=== PATIENT | male | born 1970 | race Caucasian/White ===

== ENCOUNTER 2020-12-23 21:42 | Emergency (ER) | payer BC, OTHER ==
[~2020-12-23] VITALS: Ht 185.4 cm; Wt 200.0 kg
[2020-12-23 22:42] VITALS: BP 132/58
--- NOTE | 2020-12-23 23:04 | PHYS DOC ---
Past Medical History Past Medical History: High Cholesterol, Hypertension, Pneumonia Additional Past Medical Histor: COVID 06/2020, BILATERAL BROKEN LEGS Past Surgical History: No Surgical History Smoking Status: Never Smoker Alcohol Use: Occasionally General Adult EDM: Chief Complaint: MECHANICAL FALL HPI: HPI: Patient is a 50 year old male who presents with at [facility] when he slipped and fell on a wet floor falling on his right face, right ribs and right knee and injuring the left forearm. He rates his pain a throbbing 5 out of 10. He denies loss of consciousness. He denies any kind of blood thinners. Patient denies chest pain, shortness of air, abdominal pain, nausea, vomiting, dizziness, vision change, focal weakness, Review of Systems: Review of Systems: Constitutional: Denies fever or chills. [] Eyes: Denies change in visual acuity. [] HENT: Denies nasal congestion or sore throat. [] Respiratory: Denies cough or shortness of breath. [] Cardiovascular: Denies chest pain or edema. [] GI: Denies abdominal pain, nausea, vomiting, bloody stools or diarrhea. [] : Denies dysuria. [] Musculoskeletal: + bilateral lower back pain or + right knee joint pain. + Right ribs . + Left forearm . + Right face [] Integument: Denies rash. [] Neurologic: Denies headache, focal weakness or sensory changes. [] Endocrine: Denies polyuria or polydipsia. [] Lymphatic: Denies swollen glands. [] Psychiatric: Denies depression or anxiety. [] Heart Score: C/O Chest Pain: No Risk Factors: Risk Factors: DM, Current or recent (<one month) smoker, HTN, HLP, family history of CAD, obesity. Risk Scores: Score 0 - 3: 2.5% MACE over next 6 weeks - Discharge Home Score 4 - 6: 20.3% MACE over next 6 weeks - Admit for Clinical Observation Score 7 - 10: 72.7% MACE over next 6 weeks - Early Invasive Strategies Allergies: Allergies: Allergies Coded Allergies Type Severity Reaction Last Updated Verified No Known Drug Allergies 12/23/20 No Physical Exam: PE: Constitutional: Well developed, well nourished, no acute distress, non-toxic appearance. [] HENT: Normocephalic, atraumatic, bilateral external ears normal, oropharynx moist, no oral exudates, nose normal. Redness to the right cheekbone side of the face [] Eyes: PERRLA, EOMI, conjunctiva normal, no discharge. [] Neck: Normal range of motion, no tenderness, supple, no stridor. [] Cardiovascular:Heart rate regular rhythm, no murmur [] Lungs & Thorax: Bilateral breath sounds clear to auscultation [] Abdomen: Bowel sounds normal, soft, no tenderness, no masses, no pulsatile masses. [] Skin: Warm, dry, no erythema, no rash. Redness to right side of the face [] Back: Bilateral lower back tenderness, no CVA tenderness. [] Extremities: Right dorsal patella tenderness, no cyanosis, no clubbing, ROM intact, 1+ edema. [] Neurologic: Alert and oriented X 3, normal motor function, normal sensory function, no focal deficits noted. [] Psychologic: Affect normal, judgement normal, mood normal. [] Current Patient Data: Vital Signs: Vital Signs Date Time Temp Pulse Resp B/P (MAP) Pulse Ox O2 Delivery O2 Flow Rate FiO2 12/23/20 22:39 98.2 93 12 131/59 (83) 95 Room Air 98.2 EKG: EKG: [] Radiology/Procedures: Radiology/Procedures: [] Impression: [facility] [address] [place], [place] [id number] IMAGING REPORT Signed PATIENT: CONSTANZA TOSCANO ACCOUNT: [id number] : 1970 LOCATION: ER AGE: 50 SEX: M EXAM STATUS: REG ER ORD. PHYSICIAN: MALIA RAMÍREZ APRN REASON: fall, head injury PROCEDURE: CT HEAD AND MAXILLOFACIAL WO EXAM: CT HEAD WITHOUT IV CONTRAST CLINICAL HISTORY: Reason: fall, head injury / Spl. Instructions: / History: COMPARISON: None. TECHNIQUE: Routine CT of the head without contrast. Soft tissues and bone windows were reviewed. PQRS compliance statement - One or more of the following individualized dose reduction techniques were utilized for this study: 1. Automated exposure control 2. Adjustment of the mA and/or kV according to patient size 3. Use of iterative reconstruction technique FINDINGS: There is no evidence of hemorrhage, mass or extra-axial fluid collection. Cunningham-white differentiation is maintained with no evidence of edema. There is no mass effect or shift of the intracranial structures. The ventricles, basilar cisterns and cortical sulci are normal in size and configuration for the patients stated age. The cerebellum and brainstem are unremarkable. The calvarium demonstrates no evidence of fracture or focal lesion. There is normal aeration of the visualized paranasal sinuses and mastoid air cells. The visualized portions of the orbits are normal. IMPRESSION: No evidence for acute intracranial process. EXAM: CT facial bones without contrast CLINICAL HISTORY: Reason: fall, head injury / Spl. Instructions: / History: COMPARISON: None available. TECHNIQUE: Helical CT of the face/paranasal sinuses was acquired and axial, co sola and sagittal reformatted images were generated. ---PQRS compliance statement - One or more of the following individualized dose reduction techniques were utilized for this study: 1. Automated exposure control 2. Adjustment of the mA and/or kV according to patient size 3. Use of iterative reconstruction technique--- FINDINGS: No definite fracture is noted of the facial bones. Nodular thickening of the maxillary sinuses. No air-fluid levels. The mastoids are unremarkable. The globes, extraocular muscles, optic nerves and retrobulbar fat are normal. Multifocal dental caries are seen. Otherwise, visualized upper aerodigestive tract is normal. Mandible and bilateral temporomandibular joints are normal. IMPRESSION: 1. No evidence for acute facial for fracture or dislocation. 2. Maxillary sinus disease. 3. Multifocal dental disease. Electronically signed by: Bill Kaye MD (12/23/2020 11:25 PM) [facility] DICTATED and SIGNED BY: BILL KAYE MD DATE: 12/23/20 [id number] [facility] [address] [place] [address] IMAGING REPORT Signed PATIENT: CONSTANZA TOSCANO ACCOUNT: [id number] : 1970 LOCATION: ER AGE: 50 SEX: M EXAM STATUS: REG ER ORD. PHYSICIAN: MALIA RAMÍREZ APRN REASON: pain after fall PROCEDURE: RIBS RIGHT AND PA CHEST Exam:Right ribs with PA chest Date: 12/23/2020 11:11 PM Comparison: No prior Indication: Reason: pain after fall / Spl. Instructions: / History: Findings/ Impression: The heart is not enlarged. Mediastinal and hilar contours are normal. No focal parenchymal airspace opacity. No pleural effusion or pneumothorax. AP, Oblique and Spot images of the right ribs are negative for acute displaced rib fracture. Negative focal pleural elevation. Symmetrical intercostal spacing. It is of note that an acute non-displaced rib fracture can be in-apparent on initial post-trauma imaging. Electronically signed by: Bill Kaye MD (12/24/2020 12:14 AM) [facility] DICTATED and SIGNED BY: BILL KAYE MD DATE: 12/24/20 [id number] [id number] IMAGING REPORT Signed PATIENT: CONSTANZA TOSCANO ACCOUNT: [id number] : 1970 LOCATION: ER AGE: 50 SEX: M EXAM STATUS: REG ER ORD. PHYSICIAN: MALIA RAMÍREZ APRN REASON: pain after fall PROCEDURE: KNEE RIGHT 4V EXAM: AP, oblique, tangential patellar and lateral views of the right knee DATE: 12/23/2020 11:11 PM CLINICAL INDICATION: Reason: pain after fall / Spl. Instructions: / History: COMPARISON: None. FINDINGS: Negative for acute or subacute fracture. Regional joint spaces are preserved. Soft tissue swelling about the right lower leg.. Negative retained radiopaque foreign body. There is no large joint effusion. Lateral patellar tracking IMPRESSION: 1. No acute fracture or dislocation. 2. Lateral patellar tracking. Electronically signed by: Bill Kaye MD (12/24/2020 12:15 AM) [facility] DICTATED and SIGNED BY: BILL KAYE MD DATE: 12/24/20 [id number] [id number] [place] [address] IMAGING REPORT Signed PATIENT: CONSTANZA TOSCANO ACCOUNT: [id number] : 1970 LOCATION: ER AGE: 50 SEX: M EXAM STATUS: REG ER ORD. PHYSICIAN: MALIA RAMÍREZ APRN REASON: pain after fall PROCEDURE: FOREARM LEFT EXAM: AP and lateral views left forearm DATE: 12/23/2020 11:11 PM INDICATION: Reason: pain after fall / Spl. Instructions: / History: . COMPARISON: No Prior FINDINGS/ IMPRESSION: No evidence of acute fracture or dislocation. Joint spaces are preserved without significant degenerative/proliferative change. Soft tissue swelling at the dorsal aspect of the left forearm. Electronically signed by: Bill Kaye MD (12/24/2020 12:16 AM) [facility] DI[facility]ATED and SIGNED BY: BILL KAYE MD DATE: 12/24/20 [id number] Course & Med Decision Making: Course & Med Decision Making Pertinent Labs and Imaging studies reviewed. (See chart for details) See HPI. Alert and oriented x3. Ambulatory with a steady gait. Skin pink warm and dry. Some tenderness to the right face with some redness but there is no swelling or deformity or bruising. Left posterior forearm looks 2+ swollen but there is no deformity, bruising or swelling. Right anterior patella with slight tenderness with palpation but there is no dislocation, deformity, bruising maybe 1+ swelling. Full range of motion of all joints. Ambulatory with a steady gait. No rib tenderness with palpation there is no subcutaneous emphysema or crepitus. Lungs are clear to all station all lobes. Speaks in full complete sentences. Bilateral low back slight tenderness but he states that it feels more like a pulled muscle. No numbness or tingling. No focal weakness. No laceration, abrasions. [] Dragon Disclaimer: Brit Disclaimer: This electronic medical record was generated, in whole or in part, using a voice recognition dictation system. Departure Departure Impression: Primary Impression: Facial pain Additional Impressions: Left arm pain Knee pain, right Qualified Codes: M25.561 - Pain in right knee Rib pain on right side Disposition: HOME / SELF CARE / HOMELESS Condition: STABLE Patient Instructions: Facial or Scalp Contusion, Fall Prevention and Home Safety, Incentive Spirometer, Knee Pain, Rib Contusion Additional Instructions: Follow up with your primary care provider soon as possible. Use ice or heat to help with your pain. Drink plenty of fluids. Remember pain medication and or muscle relaxer will make you very sleepy. Scripts Cyclobenzaprine Hcl (CYCLOBENZAPRINE HCL) 10 Mg Tablet 1 TAB PO TID, #15 TAB Prov: MALIA RAMÍREZ APRN 12/24/20 Ibuprofen (IBUPROFEN) 600 Mg Tablet 600 MG PO PRN Q6HRS PRN for INFLAMMATION, #20 TAB Prov: MALIA RAMÍREZ APRN 12/24/20 MALIA RAMÍREZ APRN Dec 23, 2020 23:04
--- NOTE | 2020-12-23 23:27 | RAD ---
EXAM: CT HEAD WITHOUT IV CONTRAST CLINICAL HISTORY: Reason: fall, head injury / Spl. Instructions: / History: COMPARISON: None. TECHNIQUE: Routine CT of the head without contrast. Soft tissues and bone windows were reviewed. PQRS compliance statement - One or more of the following individualized dose reduction techniques wer e utilized for this study: 1. Automated exposure control 2. Adjustment of the mA and/or kV according to patient size 3. Use of iterative reconstruction technique FINDINGS: There is no evidence of hemorrhage, mass or extra-axial fluid collection. Cunningham-white differentiation is maintained with no evidence of edema. There is no mass effect or shift of the intracranial structures. The ventricles, basilar cisterns and cortical sulci are normal in size and configuration for the jamie ents stated age. The cerebellum and brainstem are unremarkable. The calvarium demonstrates no evidence of fracture or focal lesion. There is normal aeration of the visualized paranasal sinuses and mastoid air cells. The visualized portions of the orbits are normal. IMPRESSION: No evidence for acute intracranial process. EXAM: CT facial bones without contrast CLINICAL HISTORY: Reason: fall, head injury / Spl. Instructions: / History: COMPARISON: None available. TECHNIQUE: Helical CT of the face/paranasal sinuses was acquired and axial, coronal and sagittal refo rmatted images were generated. ---PQRS compliance statement - One or more of the following individualized dose reduction techniques were utilized for this study: 1. Automated exposure control 2. Adjustment of the mA and/or kV according to patient size 3. Use of iterative reconstruction technique--- FINDINGS: No definite fracture is noted of the facial bones. Nodular thickening of the maxillary sinuses. No air-fluid levels. The mastoids are unremarkable. The globes, extraocular muscles, optic nerves and retrobulbar fat are normal. Multifocal dental caries are seen. Otherwise, visualized upper aerodigestive tract is normal. Mandible and bilateral temporomandibular joints are normal. IMPRESSION: 1. No evidence for acute facial for fracture or dislocation. 2. Maxillary sinus disease. 3. Multifocal dental disease. Electronically signed by: Bill Gutierrez MD (12/23/2020 11:25 PM) [facility]
--- NOTE | 2020-12-23 23:42 | RAD ---
CT LUMBAR SPINE WO History:Reason: pain after fall, low back / Spl. Instructions: / History: Technique: Noncontrast CT was performed of the lumbar spine. Multiplanar reconstructions were perform ed. Exposure: One or more of the following individualized dose reduction techniques were utilized for thi s examination: 1. Automated exposure control 2. Adjustment of the mA and/or kV according to patient size 3. Use of iterative reconstruction technique. Comparison: None Findings: Subtle linear lucency within left L3 transverse process. Normal vertebral body height and alignment. Unfused posterior elements L5. T12-L1: No canal or neuroforaminal narrowing. L1-L2: No canal or neuroforaminal narrowing. L2-L3: Small disc bulge. No canal or neuroforaminal narrowing. L3-L4: Broad-based disc bulge. Mild facet arthropathy. No canal narrowing. No neuroforaminal narrowi ng. L4-L5: Broad-based disc bulge. Moderate facet arthropathy. Subarticular recess narrowing. No definit e canal narrowing. Mild bilateral neuroforaminal narrowing. L5-S1: Disc bulge. No canal narrowing. Moderate facet arthropathy. Mild bilateral neuroforaminal chris rowing. Impression: 1. Slight irregularity of left L3 transverse process, may represent nondisplaced fracture or artifac t. Recommend correlation with point tenderness. 2. Multilevel lumbar spondylosis. Electronically signed by: Eran Myers DO (12/23/2020 11:40 PM) [facility]
--- NOTE | 2020-12-24 00:17 | RAD ---
Exam:Right ribs with PA chest Date: 12/23/2020 11:11 PM Comparison: No prior Indication: Reason: pain after fall / Spl. Instructions: / History: Findings/ Impression: The heart is not enlarged. Mediastinal and hilar contours are normal. No focal parenchymal airspace o pacity. No pleural effusion or pneumothorax. AP, Oblique and Spot images of the right ribs are negative for acute displaced rib fracture. Negativ e focal pleural elevation. Symmetrical intercostal spacing. It is of note that an acute non-displaced rib fracture can be in-apparent on initial post-trauma imag ing. Electronically signed by: Bill Gutierrez MD (12/24/2020 12:14 AM) [facility]
--- NOTE | 2020-12-24 00:18 | RAD ---
EXAM: AP and lateral views left forearm DATE: 12/23/2020 11:11 PM INDICATION: Reason: pain after fall / Spl. Instructions: / History: . COMPARISON: No Prior FINDINGS/ IMPRESSION: No evidence of acute fracture or dislocation. Joint spaces are preserved without significant degenera tive/proliferative change. Soft tissue swelling at the dorsal aspect of the left forearm. Electronically signed by: Bill Gutierrez MD (12/24/2020 12:16 AM) [facility]
--- NOTE | 2020-12-24 00:18 | RAD ---
EXAM: AP, oblique, tangential patellar and lateral views of the right knee DATE: 12/23/2020 11:11 PM CLINICAL INDICATION: Reason: pain after fall / Spl. Instructions: / History: COMPARISON: None. FINDINGS: Negative for acute or subacute fracture. Regional joint spaces are preserved. Soft tissue swelling a bout the right lower leg.. Negative retained radiopaque foreign body. There is no large joint effusio n. Lateral patellar tracking IMPRESSION: 1. No acute fracture or dislocation. 2. Lateral patellar tracking. Electronically signed by: Bill Gutierrez MD (12/24/2020 12:15 AM) [facility]
[2020-12-24] MEDS ORDERED: IBUP-1007 PO (00:26)
[2020-12-24] MEDS ORDERED: CYCL10TA2 PO (00:26)
== END 2020-12-24 00:46 | disposition home or self-care (01) ==
LOC: ER 21:42
DX: R51.9 Headache, unspecified (principal); M79.602 Pain in left arm; M25.561 Pain in right knee; R07.81 Pleurodynia; M54.5 Low back pain; E78.00 Pure hypercholesterolemia, unspecified; I10 Essential (primary) hypertension; W01.0XXA Fall on same level from slipping, tripping and stumbling without subsequent striking against object, initial encounter; Y93.89 Activity, other specified; Y92.89 Other specified places as the place of occurrence of the external cause; Y99.8 Other external cause status
CPT/HCPCS: 70450; 70486; 71101; 72131; 73090; 73564; 99285